=== PATIENT | male | born 1990 | race Caucasian/White ===

== ENCOUNTER 2020-08-16 16:37 | Inpatient (IN) | payer MEDICAID, OTHER ==
[~2020-08-16] VITALS: Ht 165.1 cm; Wt 69.5 kg
[2020-08-16] MEDS ORDERED: ALBU8HFA IH (16:54)
[2020-08-16] MEDS ORDERED: OLAN5TAB2 PO (16:54)
[2020-08-16 18:12] LABS: BASOPHILS % (AUTO) 0.8 % (0.0-2.0); EOSINOPHILS % (AUTO) 7.7 % (1.0-6.0); HEMATOCRIT 45.6 % (41-53); HEMOGLOBIN 15.1 g/dL (13.5-17.5); LYMPHOCYTES # (AUTO) 1.6 K/uL (1.0-4.8); LYMPHOCYTES % (AUTO) 15.3 % (22.0-44.0); MEAN CORPUSCULAR HEMOGLOBIN 28.2 pg (26.0-34.0); MEAN CORPUSCULAR HGB CONC 33.2 G/dL (31.0-37.0); MEAN CORPUSCULAR VOLUME 85 fL (80-100); MONOCYTES # (AUTO) 1.1 K/uL (0.1-1.0); MONOCYTES % (AUTO) 10.1 % (2.0-9.0); NEUTROPHILS % (AUTO) 66.1 % (40.0-70.0); PLATELET COUNT (AUTO) 362 K/uL (150-450); RED BLOOD CELL COUNT(AUTO) 5.36 MIL/uL (4.50-5.90)
[2020-08-16 18:53] LABS: ANION GAP 6 mmol/L (8-16); CALCIUM, TOTAL 8.5 mg/dL (8.8-10.5); CARBON DIOXIDE 34 mmol/L (22-29); CHLORIDE 106 mmol/L (98-107); GLOMERULAR FILTR. RATE CALC > 60 mL/min (>60); GLUCOSE,RANDOM 71 mg/dL (70-110); POTASSIUM 4.1 mmol/L (3.5-5.1); SODIUM SERUM 146 mmol/L (136-145); UREA NITROGEN, BLOOD 11 mg/dL (7-18)
[2020-08-16 19:00] LABS: ALANINE AMINOTRANSFERASE 21 U/L (12-78); ALBUMIN 3.4 g/dL (3.4-5.0); ALKALINE PHOSPHATASE 58 U/L (46-116); ASPARTATE AMINOTRANSFERASE 17 U/L (15-37); BILIRUBIN,TOTAL 0.2 mg/dL (0.1-1.0); TOTAL PROTEIN, SERUM 7.1 g/dL (6.4-8.2)
[2020-08-16] MEDS ORDERED: HALOPERIDOL 5 MG TABLET PO ONE (19:00)
[2020-08-16 19:36] LABS: COVID AG,FIA SOURCE NASOPHARYNGEAL
[2020-08-16 21:18] VITALS: BP 133/75
[2020-08-17] MEDS ORDERED: PETROLATUM,WHITE 28 GM JELLY TP PRN (08:15)
[2020-08-17] MEDS ORDERED: ACETAMINOPHEN 325 MG TABLET PO PRN (08:15)
[2020-08-17] MEDS ORDERED: DOCUSATE SODIUM 100 MG CAPSULE PO PRN (08:15)
[2020-08-17] MEDS ORDERED: ALBUTEROL SULFATE HFA 90 MCG/PUFF 8 GM INHALER IH PRN (08:15)
[2020-08-17] MEDS ORDERED: GuaiFENesin/D-METHORPHAN [SUGAR-FREE] 200-20MG/10 ML SYRUP UDCUP PO PRN (08:15)
[2020-08-17] MEDS ORDERED: LOPERAMIDE HCL 2 MG CAPSULE PO PRN (08:15)
[2020-08-17] MEDS ORDERED: CloNIDine HCL 0.1 MG TABLET PO PRN (08:15)
[2020-08-17] MEDS ORDERED: NICOTINE 14 MG/24 HOUR PATCH TD PRN (08:15)
[2020-08-17] MEDS ORDERED: MAG HYDROX/AL HYDROX/SIMETH ES 30 ML SUSPENSION UDCUP PO PRN (08:15)
[2020-08-17] MEDS ORDERED: MAGNESIUM HYDROXIDE SUSPENSION 30 ML UDCUP PO PRN (08:15)
[2020-08-17] MEDS ORDERED: ONDANSETRON HCL 4 MG TABLET PO PRN (08:15)
[2020-08-17] MEDS: IBUPROFEN 400 MG TABLET PO PRN (11:21)
[2020-08-17 16:19] VITALS: BP 110/62
[2020-08-17] MEDS: OLANZapine 5 MG TABLET PO SCH (20:14)
[2020-08-18] MEDS: OLANZapine 5 MG TABLET PO SCH ×2 (09:00→20:14)
[2020-08-18 17:00] VITALS: BP 115/66
[2020-08-19 08:00] VITALS: BP 112/69
[2020-08-19] MEDS: OLANZapine 5 MG TABLET PO SCH ×2 (09:01→20:16)
[2020-08-19 17:00] VITALS: BP 117/76
[2020-08-20 08:00] VITALS: BP 131/82
[2020-08-20] MEDS: OLANZapine 5 MG TABLET PO SCH (09:52)
[2020-08-20 16:00] VITALS: BP 105/60
[2020-08-20] MEDS: OLANZapine 7.5 MG TABLET PO SCH (20:00)
[2020-08-20] MEDS: ZOLPIDEM TARTRATE 10 MG TABLET PO PRN (21:36)
[2020-08-21 07:43] LABS: ANION GAP 6 mmol/L (8-16); CALCIUM, TOTAL 8.5 mg/dL (8.8-10.5); CARBON DIOXIDE 29 mmol/L (22-29); CHLORIDE 103 mmol/L (98-107); CREATININE 0.89 mg/dL (0.60-1.30); GLOMERULAR FILTR. RATE CALC > 60 mL/min (>60); GLUCOSE,RANDOM 90 mg/dL (70-110); POTASSIUM 4.5 mmol/L (3.5-5.1); SODIUM SERUM 138 mmol/L (136-145); UREA NITROGEN, BLOOD 19 mg/dL (7-18)
[2020-08-21] MEDS: OLANZapine 7.5 MG TABLET PO SCH ×2 (09:08→20:03)
[2020-08-21] MEDS: LORazepam 2 MG TABLET PO PRN (13:05)
[2020-08-21] MEDS: HALOPERIDOL 5 MG TABLET PO PRN (13:05)
[2020-08-21 16:15] VITALS: BP 119/78
[2020-08-21] MEDS: ZOLPIDEM TARTRATE 10 MG TABLET PO PRN (20:03)
[2020-08-22 08:00] VITALS: BP 98/57
[2020-08-22] MEDS: OLANZapine 7.5 MG TABLET PO SCH ×2 (09:15→20:05)
[2020-08-22] MEDS: LORazepam 2 MG TABLET PO PRN ×2 (09:16→23:45)
[2020-08-22] MEDS: HALOPERIDOL 5 MG TABLET PO PRN ×2 (09:16→23:45)
[2020-08-22 14:15] LABS: COVID AG,FIA SOURCE NASOPHARYNGEAL
[2020-08-22 16:17] VITALS: BP 110/77
[2020-08-22] MEDS: ZOLPIDEM TARTRATE 10 MG TABLET PO PRN (20:07)
[2020-08-23 08:00] VITALS: BP 112/66
[2020-08-23] MEDS: OLANZapine 7.5 MG TABLET PO SCH ×2 (08:15→20:42)
[2020-08-23 16:08] VITALS: BP 119/73
[2020-08-23] MEDS: LORazepam 2 MG TABLET PO PRN (16:37)
[2020-08-23] MEDS: HALOPERIDOL 5 MG TABLET PO PRN (16:38)
[2020-08-23] MEDS: ZOLPIDEM TARTRATE 10 MG TABLET PO PRN (20:41)
[2020-08-24] MEDS: LORazepam 2 MG TABLET PO PRN (00:03)
[2020-08-24] MEDS: HALOPERIDOL 5 MG TABLET PO PRN (00:03)
[2020-08-24] MEDS: OLANZapine 7.5 MG TABLET PO SCH ×2 (08:52→20:39)
[2020-08-24 11:48] VITALS: BP 124/72
[2020-08-24 16:28] VITALS: BP 118/64
[2020-08-25] MEDS: ZOLPIDEM TARTRATE 10 MG TABLET PO PRN (00:23)
[2020-08-25] MEDS: LORazepam 2 MG TABLET PO PRN (00:23)
[2020-08-25 09:41] VITALS: BP 122/68
[2020-08-25] MEDS: OLANZapine 7.5 MG TABLET PO SCH (09:41)
[2020-08-25] MEDS: IBUPROFEN 400 MG TABLET PO PRN (09:41)
[2020-08-25] MEDS ORDERED: OLAN7.5T2 PO (11:18)
== END 2020-08-25 12:20 | disposition home or self-care (01) | DRG 750 ==
LOC: EMS 16:37 → 3EC 19:22
DX: F20.0 Paranoid schizophrenia (principal); E87.0 Hyperosmolality and hypernatremia; F12.10 Cannabis abuse, uncomplicated; F15.10 Other stimulant abuse, uncomplicated; J45.909 Unspecified asthma, uncomplicated; F17.210 Nicotine dependence, cigarettes, uncomplicated; R45.850 Homicidal ideations; M54.9 Dorsalgia, unspecified; G89.29 Other chronic pain; F99 Mental disorder, not otherwise specified; Z20.828 Contact with and (suspected) exposure to other viral communicable diseases; I95.9 Hypotension, unspecified; Z59.0 Homelessness; Z79.899 Other long term (current) drug therapy
CPT/HCPCS: 87426; G0480

== ENCOUNTER 2020-09-01 21:02 | Emergency (ER) | payer MEDICAID, OTHER ==
[~2020-09-01] VITALS: Ht 165.1 cm; Wt 63.6 kg
[~2020-09-01 21:02] MED LIST: OLAN7.5T2 PO
[2020-09-02 01:38] VITALS: BP 118/73
== END 2020-09-02 01:46 | disposition home or self-care (01) ==
LOC: EMS 21:02
DX: R44.0 Auditory hallucinations (principal); J45.909 Unspecified asthma, uncomplicated; F17.210 Nicotine dependence, cigarettes, uncomplicated; F12.90 Cannabis use, unspecified, uncomplicated; F19.90 Other psychoactive substance use, unspecified, uncomplicated; G89.29 Other chronic pain; Z76.0 Encounter for issue of repeat prescription
CPT/HCPCS: Z7502

== ENCOUNTER 2020-09-15 11:00 | Emergency (ER) | payer OTHER ==
[~2020-09-15] VITALS: Ht 165.1 cm; Wt 67.3 kg
[2020-09-15 12:32] LABS: AMPHET/METH SCREEN,URINE POSITIVE (NEGATIVE); BARBITURATE SCREEN, URINE NEGATIVE (NEGATIVE); BENZODIAZEPINES SCREEN,URINE NEGATIVE (NEGATIVE); CANNABINOID SCREEN,URINE NEGATIVE (NEGATIVE); COCAINE SCREEN,URINE NEGATIVE (NEGATIVE); METHADONE SCREEN, URINE NEGATIVE (NEGATIVE); OPIATE SCREEN,URINE NEGATIVE (NEGATIVE)
[2020-09-15 12:34] LABS: PHENCYCLIDINE SCREEN,URINE NEGATIVE (NEGATIVE)
[2020-09-15 13:14] LABS: BASOPHILS % (AUTO) 0.8 % (0.0-2.0); EOSINOPHILS % (AUTO) 10.1 % (1.0-6.0); HEMATOCRIT 44.2 % (41-53); HEMOGLOBIN 14.5 g/dL (13.5-17.5); LYMPHOCYTES # (AUTO) 1.2 K/uL (1.0-4.8); LYMPHOCYTES % (AUTO) 17.3 % (22.0-44.0); MEAN CORPUSCULAR HEMOGLOBIN 28.1 pg (26.0-34.0); MEAN CORPUSCULAR HGB CONC 32.7 G/dL (31.0-37.0); MEAN CORPUSCULAR VOLUME 86 fL (80-100); MONOCYTES # (AUTO) 0.7 K/uL (0.1-1.0); MONOCYTES % (AUTO) 9.4 % (2.0-9.0); NEUTROPHILS # (AUTO) 4.5 K/uL (1.8-7.7); NEUTROPHILS % (AUTO) 62.4 % (40.0-70.0); PLATELET COUNT (AUTO) 343 K/uL (150-450); RED BLOOD CELL COUNT(AUTO) 5.16 MIL/uL (4.50-5.90); RED CELL DISTRIBUTION WIDTH 14.2 % (11.5-14.5)
[2020-09-15 13:31] LABS: ANION GAP 3 mmol/L (8-16); CALCIUM, TOTAL 8.4 mg/dL (8.8-10.5); CARBON DIOXIDE 30 mmol/L (22-29); CHLORIDE 105 mmol/L (98-107); CREATININE 0.79 mg/dL (0.60-1.30); GLOMERULAR FILTR. RATE CALC > 60 mL/min (>60); GLUCOSE,RANDOM 95 mg/dL (70-110); POTASSIUM 4.5 mmol/L (3.5-5.1); SODIUM SERUM 138 mmol/L (136-145); UREA NITROGEN, BLOOD 10 mg/dL (7-18)
[2020-09-15 13:44] LABS: ALANINE AMINOTRANSFERASE 21 U/L (12-78); ALBUMIN 3.2 g/dL (3.4-5.0); ALKALINE PHOSPHATASE 54 U/L (46-116); ASPARTATE AMINOTRANSFERASE 19 U/L (15-37); BILIRUBIN,TOTAL 0.3 mg/dL (0.1-1.0); TOTAL PROTEIN, SERUM 6.9 g/dL (6.4-8.2)
[2020-09-15 16:03] VITALS: BP 135/76
[2020-09-15] MEDS ORDERED: OLANZapine 5 MG TABLET PO ONE (16:30)
== END 2020-09-15 17:54 | disposition home or self-care (01) ==
LOC: EMS 11:19
DX: R45.851 Suicidal ideations (principal); F20.9 Schizophrenia, unspecified; J45.909 Unspecified asthma, uncomplicated; F12.10 Cannabis abuse, uncomplicated; F19.90 Other psychoactive substance use, unspecified, uncomplicated
CPT/HCPCS: 36415; 80053; 80307; 85025; 99284; G0480

== ENCOUNTER 2021-03-31 11:35 | Inpatient (IN) | payer MEDICAID ==
[~2021-03-31] VITALS: Ht 165.1 cm; Wt 65.9 kg
[~2021-03-31 11:35] MED LIST changes: -OLAN7.5T2 PO; +OLAN7.5T22 PO
[2021-03-31] MEDS ORDERED: HALOPERIDOL 5 MG TABLET PO PRN (12:15)
[2021-03-31 13:03] LABS: GLUCOMETER DEV NAME(LOC) POC.BV
[2021-03-31] MEDS: LORazepam 2 MG TABLET PO PRN (14:09)
[2021-03-31] MEDS ORDERED: LOPERAMIDE HCL 2 MG CAPSULE PO PRN (15:45)
[2021-03-31] MEDS ORDERED: DOCUSATE SODIUM 100 MG CAPSULE PO PRN (15:45)
[2021-03-31] MEDS ORDERED: GuaiFENesin/D-METHORPHAN [SUGAR-FREE] 200-20MG/10 ML SYRUP UDCUP PO PRN (15:45)
[2021-03-31] MEDS ORDERED: MAG HYDROX/AL HYDROX/SIMETH ES 30 ML SUSPENSION UDCUP PO PRN (15:45)
[2021-03-31] MEDS ORDERED: MAGNESIUM HYDROXIDE SUSPENSION 30 ML UDCUP PO PRN (15:45)
[2021-03-31] MEDS ORDERED: ONDANSETRON HCL 4 MG TABLET PO PRN (15:45)
[2021-03-31] MEDS ORDERED: IBUPROFEN 400 MG TABLET PO PRN (15:45)
[2021-03-31] MEDS ORDERED: ALBUTEROL SULFATE HFA 90 MCG/PUFF 8 GM INHALER IH PRN (15:45)
[2021-03-31] MEDS ORDERED: NICOTINE 14 MG/24 HOUR PATCH TD PRN (15:45)
[2021-03-31] MEDS ORDERED: CloNIDine HCL 0.1 MG TABLET PO PRN (15:45)
[2021-03-31] MEDS ORDERED: PETROLATUM,WHITE 28 GM JELLY TP PRN (15:45)
[2021-03-31] MEDS ORDERED: ACETAMINOPHEN 325 MG TABLET PO PRN (15:45)
[2021-03-31 17:45] VITALS: BP 113/67
[2021-04-01 02:26] VITALS: BP 128/80
[2021-04-01 02:32] VITALS: BP 128/80
[2021-04-01] MEDS ORDERED: DOCUSATE SODIUM 100 MG CAPSULE PO PRN (08:00)
[2021-04-01] MEDS ORDERED: MAGNESIUM HYDROXIDE SUSPENSION 30 ML UDCUP PO PRN (08:00)
[2021-04-01] MEDS ORDERED: ONDANSETRON HCL 4 MG TABLET PO PRN (08:00)
[2021-04-01] MEDS ORDERED: NICOTINE 14 MG/24 HOUR PATCH TD PRN (08:00)
[2021-04-01] MEDS ORDERED: CloNIDine HCL 0.1 MG TABLET PO PRN (08:00)
[2021-04-01] MEDS ORDERED: GuaiFENesin/D-METHORPHAN [SUGAR-FREE] 200-20MG/10 ML SYRUP UDCUP PO PRN (08:00)
[2021-04-01] MEDS ORDERED: ACETAMINOPHEN 325 MG TABLET PO PRN (08:00)
[2021-04-01] MEDS ORDERED: MAG HYDROX/AL HYDROX/SIMETH ES 30 ML SUSPENSION UDCUP PO PRN (08:00)
[2021-04-01] MEDS ORDERED: PETROLATUM,WHITE 28 GM JELLY TP PRN (08:00)
[2021-04-01] MEDS ORDERED: LOPERAMIDE HCL 2 MG CAPSULE PO PRN (08:00)
[2021-04-01] MEDS ORDERED: ALBUTEROL SULFATE HFA 90 MCG/PUFF 8 GM INHALER IH PRN (08:00)
[2021-04-01 08:09] LABS: BASOPHILS % (AUTO) 0.4 % (0.0-2.0); HEMATOCRIT 43.9 % (41-53); HEMOGLOBIN 14.6 g/dL (13.5-17.5); LYMPHOCYTES # (AUTO) 1.2 K/uL (1.0-4.8); LYMPHOCYTES % (AUTO) 22.9 % (22.0-44.0); MEAN CORPUSCULAR HEMOGLOBIN 27.2 pg (26.0-34.0); MEAN CORPUSCULAR HGB CONC 33.3 G/dL (31.0-37.0); MEAN CORPUSCULAR VOLUME 82 fL (80-100); MONOCYTES % (AUTO) 18.1 % (2.0-9.0); NEUTROPHILS # (AUTO) 2.3 K/uL (1.8-7.7); NEUTROPHILS % (AUTO) 44.6 % (40.0-70.0); PLATELET COUNT (AUTO) 262 K/uL (150-450); RED BLOOD CELL COUNT(AUTO) 5.38 MIL/uL (4.50-5.90); RED CELL DISTRIBUTION WIDTH 13.6 % (11.5-14.5)
[2021-04-01 08:21] LABS: HEMOGLOBIN A1C 5.4 % (3.8-5.6)
[2021-04-01 08:42] LABS: ALANINE AMINOTRANSFERASE 28 U/L (12-78); ALKALINE PHOSPHATASE 68 U/L (46-116); ANION GAP 10 mmol/L (8-16); ASPARTATE AMINOTRANSFERASE 19 U/L (15-37); BILIRUBIN,TOTAL 0.2 mg/dL (0.1-1.0); CALCIUM, TOTAL 8.3 mg/dL (8.8-10.5); CARBON DIOXIDE 29 mmol/L (22-29); CHLORIDE 99 mmol/L (98-107); CHOL/HDL RATIO 3.3 (4.2-7.3); CHOLESTEROL 147 mg/dL (131-200); CREATININE 0.64 mg/dL (0.60-1.30); FREE T4 (FREE THYROXINE) 0.92 ng/dL (0.76-1.46); GLOMERULAR FILTR. RATE CALC > 60 mL/min (>60); GLUCOSE,RANDOM 82 mg/dL (70-110); HDL CHOLESTEROL 45 mg/dL (40-60); LDL CHOL (CALC.) 80 mg/dL (0-130); POTASSIUM 4.4 mmol/L (3.5-5.1); SODIUM SERUM 138 mmol/L (136-145); THYROID STIMULATING HORMONE 1.36 uIU/mL (0.36-3.74); TOTAL PROTEIN, SERUM 8.4 g/dL (6.4-8.2); TRIGLYCERIDES 108 mg/dL (15-150); UREA NITROGEN, BLOOD 14 mg/dL (7-18)
[2021-04-01] MEDS: LORazepam 2 MG TABLET PO PRN ×2 (09:21→17:07)
[2021-04-01 16:31] VITALS: BP 124/78
[2021-04-01] MEDS: OLANZapine 5 MG TABLET PO SCH (17:07)
[2021-04-01] MEDS: IBUPROFEN 400 MG TABLET PO PRN (18:57)
[2021-04-01] MEDS: ZOLPIDEM TARTRATE 10 MG TABLET PO PRN (21:44)
[2021-04-02 02:54] VITALS: BP 122/81
[2021-04-02 07:57] LABS: APPEARANCE,URINE CLEAR (CLEAR); BILIRUBIN,URINE NEGATIVE (NEGATIVE); GLUCOSE, URINE (UA) NEGATIVE (NEGATIVE); KETONES,URINE NEGATIVE (NEGATIVE); LEUKOCYTE ESTERASE ,URINE NEGATIVE (NEGATIVE); NITRATE,URINE NEGATIVE (NEGATIVE); OCCULT BLOOD,URINE NEGATIVE (NEGATIVE); PROTEIN,URINE NEGATIVE (NEGATIVE); UROBILINOGEN,URINE 0.2 mg/dL (<=1.0)
[2021-04-02 08:03] LABS: AMPHET/METH SCREEN,URINE NEGATIVE (NEGATIVE); BARBITURATE SCREEN, URINE NEGATIVE (NEGATIVE); BENZODIAZEPINES SCREEN,URINE NEGATIVE (NEGATIVE); CANNABINOID SCREEN,URINE NEGATIVE (NEGATIVE); COCAINE SCREEN,URINE NEGATIVE (NEGATIVE); METHADONE SCREEN, URINE NEGATIVE (NEGATIVE); OPIATE SCREEN,URINE NEGATIVE (NEGATIVE); PHENCYCLIDINE SCREEN,URINE NEGATIVE (NEGATIVE)
[2021-04-02 08:51] VITALS: BP 108/73
[2021-04-02] MEDS: OLANZapine 5 MG TABLET PO SCH ×2 (09:29→16:51)
[2021-04-02 16:26] VITALS: BP 109/65
[2021-04-02] MEDS: LORazepam 2 MG TABLET PO PRN (16:51)
[2021-04-02] MEDS: IBUPROFEN 400 MG TABLET PO PRN (21:10)
[2021-04-02] MEDS: ZOLPIDEM TARTRATE 10 MG TABLET PO PRN (21:10)
[2021-04-03 01:12] VITALS: BP 129/82
[2021-04-03 08:45] VITALS: BP 111/67
[2021-04-03] MEDS: OLANZapine 5 MG TABLET PO SCH ×2 (08:52→16:38)
[2021-04-03] MEDS: LORazepam 2 MG TABLET PO PRN ×3 (08:52→20:31)
[2021-04-03] MEDS: IBUPROFEN 400 MG TABLET PO PRN (14:45)
[2021-04-03 16:28] VITALS: BP 101/70
[2021-04-03 20:30] VITALS: BP 118/78
[2021-04-03] MEDS: ZOLPIDEM TARTRATE 10 MG TABLET PO PRN (20:31)
[2021-04-04 00:23] VITALS: BP 130/86
[2021-04-04] MEDS: OLANZapine 5 MG TABLET PO SCH ×2 (08:14→16:04)
[2021-04-04 08:24] VITALS: BP 104/60
[2021-04-04] MEDS: LORazepam 2 MG TABLET PO PRN ×2 (14:33→20:50)
[2021-04-04 16:54] VITALS: BP 100/62
[2021-04-04 20:50] VITALS: BP 111/75
[2021-04-05 02:35] VITALS: BP 121/77
[2021-04-05] MEDS: OLANZapine 5 MG TABLET PO SCH ×2 (10:10→16:53)
[2021-04-05 14:18] VITALS: BP 100/64
[2021-04-05 14:24] VITALS: BP 109/71
[2021-04-05] MEDS: LORazepam 2 MG TABLET PO PRN (16:53)
[2021-04-05] MEDS: IBUPROFEN 400 MG TABLET PO PRN (16:53)
[2021-04-05 17:36] VITALS: BP 101/61
[2021-04-05] MEDS: ZOLPIDEM TARTRATE 10 MG TABLET PO PRN (20:11)
[2021-04-06] MEDS: IBUPROFEN 400 MG TABLET PO PRN ×2 (00:18→13:07)
[2021-04-06 00:19] VITALS: BP 123/78
[2021-04-06] MEDS: LORazepam 2 MG TABLET PO PRN ×2 (00:53→09:06)
[2021-04-06 01:43] VITALS: BP 112/71
[2021-04-06 08:12] VITALS: BP 132/84
[2021-04-06] MEDS: OLANZapine 5 MG TABLET PO SCH (09:05)
[2021-04-06] MEDS ORDERED: OLAN5TAB52 PO (12:36)
== END 2021-04-06 16:49 | disposition home or self-care (01) | DRG 750 ==
LOC: B3A 13:08
PROVIDERS: ADMIT Psychiatry & Neurology Psychiatry; ATTEND Psychiatry & Neurology Psychiatry
DX: F20.0 Paranoid schizophrenia (principal); I95.9 Hypotension, unspecified; J45.909 Unspecified asthma, uncomplicated; F12.10 Cannabis abuse, uncomplicated; F10.10 Alcohol abuse, uncomplicated; Z20.822 Contact with and (suspected) exposure to COVID-19
CPT/HCPCS: 80053; 80061; 80307; 81003; 83036; 84436; 84439; 84443; 85025

== ENCOUNTER 2021-07-28 16:14 | Inpatient (IN) | payer MEDICAID ==
[~2021-07-28] VITALS: Ht 165.1 cm; Wt 58.1 kg
[~2021-07-28 16:14] MED LIST changes: +OLAN5TAB52 PO; -OLAN7.5T22 PO
[2021-07-28] MEDS ORDERED: INFLUENZA VIRUS VACCINE QVS 2021-22 (6MO+)/PF 60 MCG/0.5 ML SYRINGE IM. ONE (16:45)
[2021-07-28 17:37] LABS: GLUCOMETER DEV NAME(LOC) POC.BV
[2021-07-28 17:45] VITALS: BP 111/78
[2021-07-28] MEDS ORDERED: PNEUMOCOCCAL VACCINE POLYVALENT 0.5 ML VIAL [PPSV23] IM. ONE (18:00)
[2021-07-28] MEDS ORDERED: PERMETHRIN 5% 60 GM CREAM TP ONE (18:45)
[2021-07-28] MEDS: OLANZapine 5 MG TABLET PO SCH (20:46)
[2021-07-29 04:30] VITALS: BP 128/65
[2021-07-29 06:52] LABS: BASOPHILS % (AUTO) 0.7 % (0.0-2.0); EOSINOPHILS % (AUTO) 13.8 % (1.0-6.0); HEMATOCRIT 39.6 % (41-53); HEMOGLOBIN 13.1 g/dL (13.5-17.5); LYMPHOCYTES # (AUTO) 0.9 K/uL (1.0-4.8); LYMPHOCYTES % (AUTO) 17.1 % (22.0-44.0); MEAN CORPUSCULAR HEMOGLOBIN 27.1 pg (26.0-34.0); MEAN CORPUSCULAR VOLUME 82 fL (80-100); MONOCYTES # (AUTO) 0.8 K/uL (0.1-1.0); MONOCYTES % (AUTO) 15.6 % (2.0-9.0); NEUTROPHILS # (AUTO) 2.8 K/uL (1.8-7.7); NEUTROPHILS % (AUTO) 52.8 % (40.0-70.0); PLATELET COUNT (AUTO) 227 K/uL (150-450); RED BLOOD CELL COUNT(AUTO) 4.83 MIL/uL (4.50-5.90); RED CELL DISTRIBUTION WIDTH 13.6 % (11.5-14.5)
[2021-07-29 06:58] LABS: APPEARANCE,URINE TURBID (CLEAR); BILIRUBIN,URINE NEGATIVE (NEGATIVE); GLUCOSE, URINE (UA) NEGATIVE (NEGATIVE); KETONES,URINE NEGATIVE (NEGATIVE); LEUKOCYTE ESTERASE ,URINE NEGATIVE (NEGATIVE); NITRATE,URINE NEGATIVE (NEGATIVE); OCCULT BLOOD,URINE NEGATIVE (NEGATIVE); PH,URINE 5.5 (5.0-8.0); PROTEIN,URINE NEGATIVE (NEGATIVE); UROBILINOGEN,URINE 0.2 mg/dL (<=1.0)
[2021-07-29 07:02] LABS: AMPHET/METH SCREEN,URINE POSITIVE (NEGATIVE); BARBITURATE SCREEN, URINE NEGATIVE (NEGATIVE); BENZODIAZEPINES SCREEN,URINE NEGATIVE (NEGATIVE); CANNABINOID SCREEN,URINE NEGATIVE (NEGATIVE); COCAINE SCREEN,URINE NEGATIVE (NEGATIVE); METHADONE SCREEN, URINE NEGATIVE (NEGATIVE); OPIATE SCREEN,URINE NEGATIVE (NEGATIVE)
[2021-07-29 07:03] LABS: PHENCYCLIDINE SCREEN,URINE NEGATIVE (NEGATIVE)
[2021-07-29 07:15] LABS: ALANINE AMINOTRANSFERASE 23 U/L (12-78); ALBUMIN 2.8 g/dL (3.4-5.0); ALKALINE PHOSPHATASE 59 U/L (46-116); ANION GAP 3 mmol/L (8-16); ASPARTATE AMINOTRANSFERASE 20 U/L (15-37); BILIRUBIN,TOTAL 0.1 mg/dL (0.1-1.0); CALCIUM, TOTAL 8.3 mg/dL (8.8-10.5); CARBON DIOXIDE 30 mmol/L (22-29); CHLORIDE 106 mmol/L (98-107); CHOL/HDL RATIO 3.1 (4.2-7.3); CHOLESTEROL 137 mg/dL (131-200); CREATININE 0.78 mg/dL (0.60-1.30); FREE T4 (FREE THYROXINE) 0.88 ng/dL (0.76-1.46); GLOMERULAR FILTR. RATE CALC > 60 mL/min (>60); GLUCOSE,RANDOM 96 mg/dL (70-110); HDL CHOLESTEROL 44 mg/dL (40-60); LDL CHOL (CALC.) 62 mg/dL (0-130); POTASSIUM 3.9 mmol/L (3.5-5.1); SODIUM SERUM 139 mmol/L (136-145); THYROID STIMULATING HORMONE 1.76 uIU/mL (0.36-3.74); TOTAL PROTEIN, SERUM 8.4 g/dL (6.4-8.2); TRIGLYCERIDES 154 mg/dL (15-150); UREA NITROGEN, BLOOD 20 mg/dL (7-18)
[2021-07-29 07:25] LABS: HEMOGLOBIN A1C 5.4 % (3.8-5.6)
[2021-07-29] MEDS: OLANZapine 5 MG TABLET PO SCH ×2 (09:34→17:30)
[2021-07-29 09:45] VITALS: BP 108/69
[2021-07-29] MEDS ORDERED: ONDANSETRON HCL 4 MG TABLET PO PRN (14:45)
[2021-07-29] MEDS ORDERED: MAGNESIUM HYDROXIDE SUSPENSION 30 ML UDCUP PO PRN (14:45)
[2021-07-29] MEDS ORDERED: GuaiFENesin/D-METHORPHAN [SUGAR-FREE] 200-20MG/10 ML SYRUP UDCUP PO PRN (14:45)
[2021-07-29] MEDS ORDERED: MAG HYDROX/AL HYDROX/SIMETH ES 30 ML SUSPENSION UDCUP PO PRN (14:45)
[2021-07-29] MEDS ORDERED: LOPERAMIDE HCL 2 MG CAPSULE PO PRN (14:45)
[2021-07-29] MEDS ORDERED: DOCUSATE SODIUM 100 MG CAPSULE PO PRN (14:45)
[2021-07-29] MEDS ORDERED: NICOTINE 14 MG/24 HOUR PATCH TD PRN (14:45)
[2021-07-29] MEDS ORDERED: ALBUTEROL SULFATE HFA 90 MCG/PUFF 8 GM INHALER IH PRN (14:45)
[2021-07-29] MEDS ORDERED: PETROLATUM,WHITE 28 GM JELLY TP PRN (14:45)
[2021-07-29] MEDS ORDERED: CloNIDine HCL 0.1 MG TABLET PO PRN (14:45)
[2021-07-29 16:11] VITALS: BP 115/63
[2021-07-29] MEDS: ACETAMINOPHEN 325 MG TABLET PO PRN (22:17)
[2021-07-30 02:49] VITALS: BP 129/79
[2021-07-30] MEDS: LORazepam 2 MG TABLET PO PRN (02:53)
[2021-07-30 08:24] VITALS: BP 112/60
[2021-07-30] MEDS: OLANZapine 5 MG TABLET PO SCH ×2 (09:33→16:23)
[2021-07-30] MEDS: IBUPROFEN 400 MG TABLET PO PRN ×2 (12:40→22:15)
[2021-07-30] MEDS ORDERED: PERMETHRIN 5% 60 GM CREAM TP ONE (13:00)
[2021-07-30 16:11] VITALS: BP 104/65
[2021-07-31 01:06] VITALS: BP 120/69
[2021-07-31] MEDS: IBUPROFEN 400 MG TABLET PO PRN ×2 (06:15→14:18)
[2021-07-31 08:08] VITALS: BP 112/69
[2021-07-31] MEDS: OLANZapine 5 MG TABLET PO SCH ×2 (08:24→16:35)
[2021-07-31] MEDS: ACETAMINOPHEN 325 MG TABLET PO PRN (10:24)
[2021-07-31] MEDS ORDERED: PNEUMOCOCCAL VACCINE POLYVALENT 0.5 ML VIAL [PPSV23] IM. ONE (11:00)
[2021-07-31] MEDS ORDERED: INFLUENZA VIRUS VACCINE QVS 2021-22 (6MO+)/PF 60 MCG/0.5 ML SYRINGE IM. ONE (11:00)
[2021-07-31 19:59] VITALS: BP 117/81
[2021-07-31] MEDS: TraMADol HCL 50 MG TABLET PO PRN (19:59)
[2021-08-01] MEDS: TraMADol HCL 50 MG TABLET PO PRN (05:06)
[2021-08-01] MEDS: OLANZapine 5 MG TABLET PO SCH ×2 (08:42→16:19)
[2021-08-01] MEDS: IBUPROFEN 400 MG TABLET PO PRN (13:56)
[2021-08-01] MEDS: LORazepam 2 MG TABLET PO PRN (16:19)
[2021-08-01 16:28] VITALS: BP 110/60
[2021-08-02 00:54] VITALS: BP 113/70
[2021-08-02] MEDS: IBUPROFEN 400 MG TABLET PO PRN ×2 (03:19→12:38)
[2021-08-02 03:22] VITALS: BP 111/71
[2021-08-02 07:23] LABS: COVID AG,FIA SOURCE NASOPHARYNGEAL
[2021-08-02] MEDS: OLANZapine 5 MG TABLET PO SCH ×2 (08:04→16:38)
[2021-08-02] MEDS: ACETAMINOPHEN 325 MG TABLET PO PRN (08:04)
[2021-08-02 08:28] VITALS: BP 118/63
[2021-08-02 16:20] VITALS: BP 131/78
[2021-08-02] MEDS: LORazepam 2 MG TABLET PO PRN (16:48)
[2021-08-02 20:54] VITALS: BP 121/78
[2021-08-02] MEDS: TraMADol HCL 50 MG TABLET PO PRN (20:54)
[2021-08-02] MEDS: ZOLPIDEM TARTRATE 10 MG TABLET PO PRN (21:09)
[2021-08-03 00:55] VITALS: BP 128/79
[2021-08-03 09:34] VITALS: BP 134/67
[2021-08-03] MEDS: OLANZapine 5 MG TABLET PO SCH ×2 (09:34→18:15)
[2021-08-03] MEDS: IBUPROFEN 400 MG TABLET PO PRN ×2 (09:35→22:13)
[2021-08-03] MEDS: LORazepam 2 MG TABLET PO PRN (13:23)
[2021-08-03] MEDS: HALOPERIDOL 5 MG TABLET PO PRN (15:56)
[2021-08-03 16:16] VITALS: BP 116/73
[2021-08-03 22:13] VITALS: BP 123/79
[2021-08-04 05:38] VITALS: BP_SYST 105; BP_SYST 126; BP_DIAS 60; BP_DIAS 63
[2021-08-04] MEDS: TraMADol HCL 50 MG TABLET PO PRN (05:45)
[2021-08-04 08:10] VITALS: BP 103/61
[2021-08-04] MEDS: THIAMINE 100 MG TABLET PO SCH (08:51)
[2021-08-04] MEDS: OMEGA-3/DHA/EPA/FISH OIL 1,000 MG CAPSULE PO SCH (08:51)
[2021-08-04] MEDS: OLANZapine 5 MG TABLET PO SCH ×2 (08:51→16:28)
[2021-08-04] MEDS: LORazepam 2 MG TABLET PO PRN (08:51)
[2021-08-04] MEDS: HALOPERIDOL 5 MG TABLET PO PRN ×2 (08:51→18:32)
[2021-08-04] MEDS: MULTIVITAMINS WITH MINERALS, THERAPEUTIC TABLET PO SCH (08:51)
[2021-08-04 16:10] VITALS: BP 108/62
[2021-08-05 01:59] VITALS: BP 115/67
[2021-08-05 06:23] VITALS: BP 115/68
[2021-08-05] MEDS: LORazepam 2 MG TABLET PO PRN ×2 (06:28→13:09)
[2021-08-05 08:33] VITALS: BP 119/69
[2021-08-05] MEDS: OLANZapine 10 MG TABLET PO SCH (09:00)
[2021-08-05] MEDS: MULTIVITAMINS WITH MINERALS, THERAPEUTIC TABLET PO SCH ×2 (09:00→10:13)
[2021-08-05] MEDS: THIAMINE 100 MG TABLET PO SCH ×2 (09:00→10:13)
[2021-08-05] MEDS: OMEGA-3/DHA/EPA/FISH OIL 1,000 MG CAPSULE PO SCH ×2 (09:00→10:13)
[2021-08-05] MEDS: OLANZapine 5 MG TABLET PO SCH (10:13)
[2021-08-05] MEDS: HALOPERIDOL 5 MG TABLET PO PRN (13:09)
[2021-08-05 16:18] VITALS: BP 119/72
[2021-08-05] MEDS: IBUPROFEN 400 MG TABLET PO PRN (16:25)
[2021-08-05] MEDS: ZOLPIDEM TARTRATE 10 MG TABLET PO PRN (20:50)
[2021-08-06 02:35] VITALS: BP 112/69
[2021-08-06 06:15] VITALS: BP 120/70
[2021-08-06] MEDS: TraMADol HCL 50 MG TABLET PO PRN (06:19)
[2021-08-06 08:34] VITALS: BP 122/80
[2021-08-06] MEDS: MULTIVITAMINS WITH MINERALS, THERAPEUTIC TABLET PO SCH (08:37)
[2021-08-06] MEDS: THIAMINE 100 MG TABLET PO SCH (08:37)
[2021-08-06] MEDS: OMEGA-3/DHA/EPA/FISH OIL 1,000 MG CAPSULE PO SCH (08:37)
[2021-08-06] MEDS: OLANZapine 10 MG TABLET PO SCH ×2 (08:37→17:28)
[2021-08-06] MEDS: LORazepam 2 MG TABLET PO PRN ×2 (08:38→18:57)
[2021-08-06 16:15] VITALS: BP 99/61
[2021-08-06] MEDS: HALOPERIDOL 5 MG TABLET PO PRN (18:56)
[2021-08-07 00:28] VITALS: BP 101/65
[2021-08-07] MEDS: THIAMINE 100 MG TABLET PO SCH (08:29)
[2021-08-07] MEDS: OMEGA-3/DHA/EPA/FISH OIL 1,000 MG CAPSULE PO SCH (08:29)
[2021-08-07] MEDS: MULTIVITAMINS WITH MINERALS, THERAPEUTIC TABLET PO SCH (08:29)
[2021-08-07] MEDS: OLANZapine 10 MG TABLET PO SCH (08:29)
[2021-08-07 08:41] VITALS: BP 100/65
[2021-08-07] MEDS ORDERED: OLAN10TA74 PO (12:31)
== END 2021-08-07 12:50 | disposition home or self-care (01) | DRG 750 ==
LOC: B2S 17:21
PROVIDERS: ADMIT Psychiatry & Neurology Child & Adolescent Psychiatry; ATTEND Psychiatry & Neurology Child & Adolescent Psychiatry
PROC: 3E0234Z Introduction of Serum, Toxoid and Vaccine into Muscle, Percutaneous Approach (ICD-10-PCS; principal; 2021-07-31)
PROC: 3E02340 Introduction of Influenza Vaccine into Muscle, Percutaneous Approach (ICD-10-PCS; 2021-07-31)
DX: F20.0 Paranoid schizophrenia (principal); I95.9 Hypotension, unspecified; F10.10 Alcohol abuse, uncomplicated; F41.9 Anxiety disorder, unspecified; R45.1 Restlessness and agitation; J45.909 Unspecified asthma, uncomplicated; Z20.822 Contact with and (suspected) exposure to COVID-19; D64.9 Anemia, unspecified; F19.10 Other psychoactive substance abuse, uncomplicated; Z71.89 Other specified counseling; Z59.00 Homelessness unspecified; Z23 Encounter for immunization
CPT/HCPCS: 80053; 80061; 80307; 81003; 83036; 84439; 84443; 85025; 86592; 90686; 90732

== ENCOUNTER 2021-08-09 03:04 | Emergency (ER) | payer MEDICAID, OTHER ==
[~2021-08-09] VITALS: Ht 165.1 cm; Wt 58.0 kg
[~2021-08-09 03:04] MED LIST changes: +OLAN10TA74 PO; -OLAN5TAB52 PO
[2021-08-09 03:27] VITALS: BP 127/80
[2021-08-09] MEDS ORDERED: LORazepam 1 MG TABLET PO ONE (03:45)
[2021-08-09] MEDS ORDERED: HALOPERIDOL 5 MG TABLET PO ONE (03:45)
[2021-08-09] MEDS ORDERED: DiphenhydrAMINE HCL 25 MG CAPSULE PO ONE (03:45)
== END 2021-08-09 04:26 | disposition home or self-care (01) ==
LOC: EMS 03:06
DX: F25.9 Schizoaffective disorder, unspecified (principal); F17.210 Nicotine dependence, cigarettes, uncomplicated; F12.90 Cannabis use, unspecified, uncomplicated; F15.90 Other stimulant use, unspecified, uncomplicated
CPT/HCPCS: 99284; Z7502; Z7610

== ENCOUNTER 2021-10-03 11:12 | Inpatient (IN) | payer MEDICAID, OTHER ==
[~2021-10-03] VITALS: Ht 165.1 cm; Wt 56.7 kg
[2021-10-03 12:24] LABS: BASOPHILS % (AUTO) 0.3 % (0.0-2.0); EOSINOPHILS % (AUTO) 11.5 % (1.0-6.0); HEMATOCRIT 38.3 % (41-53); LYMPHOCYTES # (AUTO) 0.6 K/uL (1.0-4.8); LYMPHOCYTES % (AUTO) 11.2 % (22.0-44.0); MEAN CORPUSCULAR HEMOGLOBIN 26.7 pg (26.0-34.0); MEAN CORPUSCULAR HGB CONC 33.8 G/dL (31.0-37.0); MEAN CORPUSCULAR VOLUME 79 fL (80-100); MONOCYTES # (AUTO) 0.6 K/uL (0.1-1.0); MONOCYTES % (AUTO) 12.4 % (2.0-9.0); NEUTROPHILS # (AUTO) 3.3 K/uL (1.8-7.7); NEUTROPHILS % (AUTO) 64.6 % (40.0-70.0); PLATELET COUNT (AUTO) 219 K/uL (150-450); RED BLOOD CELL COUNT(AUTO) 4.86 MIL/uL (4.50-5.90); RED CELL DISTRIBUTION WIDTH 13.6 % (11.5-14.5)
[2021-10-03 12:46] LABS: ANION GAP 5 mmol/L (8-16); CARBON DIOXIDE 31 mmol/L (22-29); CHLORIDE 103 mmol/L (98-107); CREATININE 0.74 mg/dL (0.60-1.30); GLOMERULAR FILTR. RATE CALC > 60 mL/min (>60); GLUCOSE,RANDOM 77 mg/dL (70-110); SODIUM SERUM 139 mmol/L (136-145); UREA NITROGEN, BLOOD 11 mg/dL (7-18)
[2021-10-03 12:52] LABS: ALANINE AMINOTRANSFERASE 21 U/L (12-78); ALBUMIN 2.7 g/dL (3.4-5.0); ALKALINE PHOSPHATASE 61 U/L (46-116); ASPARTATE AMINOTRANSFERASE 27 U/L (15-37); BILIRUBIN,TOTAL 0.1 mg/dL (0.1-1.0)
[2021-10-03] MEDS ORDERED: LORazepam 2 MG TABLET PO ONE (15:15)
[2021-10-04 03:59] LABS: COVID AG,FIA SOURCE NASAL SWAB
[2021-10-04] MEDS ORDERED: ACETAMINOPHEN 325 MG TABLET PO PRN (06:45)
[2021-10-04] MEDS ORDERED: PETROLATUM,WHITE 28 GM JELLY TP PRN (06:45)
[2021-10-04] MEDS ORDERED: NICOTINE 14 MG/24 HOUR PATCH TD PRN (06:45)
[2021-10-04] MEDS ORDERED: CloNIDine HCL 0.1 MG TABLET PO PRN (06:45)
[2021-10-04] MEDS ORDERED: ONDANSETRON HCL 4 MG TABLET PO PRN (06:45)
[2021-10-04] MEDS ORDERED: ALBUTEROL SULFATE HFA 90 MCG/PUFF 8 GM INHALER IH PRN (06:45)
[2021-10-04] MEDS ORDERED: LOPERAMIDE HCL 2 MG CAPSULE PO PRN (06:45)
[2021-10-04] MEDS ORDERED: MAGNESIUM HYDROXIDE SUSPENSION 30 ML UDCUP PO PRN (06:45)
[2021-10-04] MEDS ORDERED: GuaiFENesin/D-METHORPHAN [SUGAR-FREE] 200-20MG/10 ML SYRUP UDCUP PO PRN (06:45)
[2021-10-04] MEDS ORDERED: DOCUSATE SODIUM 100 MG CAPSULE PO PRN (06:45)
[2021-10-04 09:27] VITALS: BP 112/73
[2021-10-04] MEDS: OLANZapine 10 MG TABLET PO SCH ×2 (10:24→16:31)
[2021-10-04 17:11] VITALS: BP 121/68
[2021-10-05] MEDS ORDERED: -PHARMACY VACCINE NOTE- MISC ONE (04:45)
[2021-10-05 08:28] VITALS: BP 114/75
[2021-10-05] MEDS: OLANZapine 10 MG TABLET PO SCH ×2 (08:43→16:36)
[2021-10-06] MEDS: OLANZapine 10 MG TABLET PO SCH ×2 (08:53→16:57)
[2021-10-06] MEDS: LORazepam 2 MG TABLET PO PRN ×2 (16:58→21:25)
[2021-10-06 20:22] VITALS: BP 103/64
[2021-10-07 05:34] VITALS: BP 106/72
[2021-10-07] MEDS: OLANZapine 10 MG TABLET PO SCH ×2 (09:29→16:35)
[2021-10-07] MEDS: LORazepam 2 MG TABLET PO PRN ×2 (09:39→17:23)
[2021-10-07 09:55] VITALS: BP 102/76
[2021-10-07 16:12] VITALS: BP 119/66
[2021-10-07] MEDS: MAG HYDROX/AL HYDROX/SIMETH ES 30 ML SUSPENSION UDCUP PO PRN (18:09)
[2021-10-07] MEDS: HALOPERIDOL 5 MG TABLET PO PRN (19:10)
[2021-10-08 01:12] VITALS: BP 109/76
[2021-10-08 07:22] LABS: BASOPHILS % (AUTO) 0.3 % (0.0-2.0); EOSINOPHILS % (AUTO) 13.3 % (1.0-6.0); HEMATOCRIT 35.5 % (41-53); HEMOGLOBIN 12.2 g/dL (13.5-17.5); LYMPHOCYTES # (AUTO) 0.6 K/uL (1.0-4.8); LYMPHOCYTES % (AUTO) 11.7 % (22.0-44.0); MEAN CORPUSCULAR HEMOGLOBIN 27.2 pg (26.0-34.0); MEAN CORPUSCULAR HGB CONC 34.2 G/dL (31.0-37.0); MEAN CORPUSCULAR VOLUME 80 fL (80-100); MONOCYTES % (AUTO) 19.3 % (2.0-9.0); NEUTROPHILS # (AUTO) 2.9 K/uL (1.8-7.7); NEUTROPHILS % (AUTO) 55.4 % (40.0-70.0); PLATELET COUNT (AUTO) 220 K/uL (150-450); RED BLOOD CELL COUNT(AUTO) 4.47 MIL/uL (4.50-5.90); RED CELL DISTRIBUTION WIDTH 13.8 % (11.5-14.5)
[2021-10-08 07:34] LABS: HEMOGLOBIN A1C 5.7 % (3.8-5.6)
[2021-10-08 07:36] LABS: ALANINE AMINOTRANSFERASE 23 U/L (12-78); ALBUMIN 2.6 g/dL (3.4-5.0); ALKALINE PHOSPHATASE 60 U/L (46-116); ANION GAP 3 mmol/L (8-16); ASPARTATE AMINOTRANSFERASE 22 U/L (15-37); BILIRUBIN,TOTAL 0.1 mg/dL (0.1-1.0); CALCIUM, TOTAL 8.6 mg/dL (8.8-10.5); CARBON DIOXIDE 33 mmol/L (22-29); CHLORIDE 101 mmol/L (98-107); CREATININE 0.77 mg/dL (0.60-1.30); GLOMERULAR FILTR. RATE CALC > 60 mL/min (>60); GLUCOSE,RANDOM 81 mg/dL (70-110); POTASSIUM 4.1 mmol/L (3.5-5.1); SODIUM SERUM 137 mmol/L (136-145); TOTAL PROTEIN, SERUM 8.8 g/dL (6.4-8.2); UREA NITROGEN, BLOOD 21 mg/dL (7-18)
[2021-10-08 07:45] LABS: CHOL/HDL RATIO 3.1 (4.2-7.3); THYROID STIMULATING HORMONE 2.33 uIU/mL (0.36-3.74)
[2021-10-08] MEDS: OLANZapine 10 MG TABLET PO SCH ×2 (07:59→17:47)
[2021-10-08 08:16] VITALS: BP 112/72
[2021-10-08] MEDS: FLUoxetine HCL 20 MG CAPSULE PO SCH (11:18)
[2021-10-08] MEDS: LORazepam 2 MG TABLET PO PRN (12:45)
[2021-10-08] MEDS: HALOPERIDOL 5 MG TABLET PO PRN (12:45)
[2021-10-08] MEDS: ZOLPIDEM TARTRATE 10 MG TABLET PO PRN (23:37)
[2021-10-09 02:04] VITALS: BP 107/75
[2021-10-09] MEDS: OLANZapine 10 MG TABLET PO SCH ×2 (07:59→16:01)
[2021-10-09] MEDS: FLUoxetine HCL 20 MG CAPSULE PO SCH (07:59)
[2021-10-09 08:23] VITALS: BP 147/78
[2021-10-09] MEDS: LORazepam 2 MG TABLET PO PRN ×2 (09:55→16:01)
[2021-10-09] MEDS: HALOPERIDOL 5 MG TABLET PO PRN ×2 (09:55→19:53)
[2021-10-09 16:10] VITALS: BP 108/73
[2021-10-10 01:00] VITALS: BP 110/80
[2021-10-10] MEDS: MULTIVITAMINS WITH MINERALS, THERAPEUTIC TABLET PO SCH (08:48)
[2021-10-10] MEDS: OLANZapine 10 MG TABLET PO SCH ×2 (08:48→16:25)
[2021-10-10] MEDS: FLUoxetine HCL 20 MG CAPSULE PO SCH (08:49)
[2021-10-10 08:53] VITALS: BP 120/70
[2021-10-10 16:20] VITALS: BP 110/61
[2021-10-10] MEDS: LORazepam 2 MG TABLET PO PRN (16:25)
[2021-10-10] MEDS: MAG HYDROX/AL HYDROX/SIMETH ES 30 ML SUSPENSION UDCUP PO PRN (16:29)
[2021-10-10] MEDS: ZOLPIDEM TARTRATE 10 MG TABLET PO PRN (20:20)
[2021-10-11 01:43] VITALS: BP 128/86
[2021-10-11] MEDS: FLUoxetine HCL 20 MG CAPSULE PO SCH (08:21)
[2021-10-11] MEDS: OLANZapine 10 MG TABLET PO SCH ×2 (08:21→16:22)
[2021-10-11] MEDS: MULTIVITAMINS WITH MINERALS, THERAPEUTIC TABLET PO SCH (08:21)
[2021-10-11] MEDS: LORazepam 2 MG TABLET PO PRN ×2 (08:23→14:56)
[2021-10-11 08:31] VITALS: BP 125/76
[2021-10-11 14:54] VITALS: BP 111/62
[2021-10-11 17:18] VITALS: BP 100/77
[2021-10-12 06:49] VITALS: BP 109/77
[2021-10-12] MEDS: OLANZapine 10 MG TABLET PO SCH ×2 (08:17→16:50)
[2021-10-12] MEDS: MULTIVITAMINS WITH MINERALS, THERAPEUTIC TABLET PO SCH (08:17)
[2021-10-12] MEDS: FLUoxetine HCL 20 MG CAPSULE PO SCH (08:17)
[2021-10-12 08:27] VITALS: BP 106/69
[2021-10-12 16:21] VITALS: BP 128/75
[2021-10-12] MEDS: IBUPROFEN 400 MG TABLET PO PRN (16:51)
[2021-10-12] MEDS: LORazepam 1 MG TABLET PO PRN (18:56)
[2021-10-12] MEDS: HALOPERIDOL 5 MG TABLET PO PRN (19:39)
[2021-10-12] MEDS: ZOLPIDEM TARTRATE 10 MG TABLET PO PRN (20:37)
[2021-10-13 05:35] VITALS: BP 129/66
[2021-10-13] MEDS: FLUoxetine HCL 20 MG CAPSULE PO SCH (07:39)
[2021-10-13] MEDS: OLANZapine 10 MG TABLET PO SCH ×2 (07:39→16:09)
[2021-10-13] MEDS: MULTIVITAMINS WITH MINERALS, THERAPEUTIC TABLET PO SCH (07:39)
[2021-10-13 10:55] VITALS: BP 111/86
[2021-10-13] MEDS: HALOPERIDOL 5 MG TABLET PO PRN ×2 (11:09→16:09)
[2021-10-13] MEDS: IBUPROFEN 400 MG TABLET PO PRN (11:09)
[2021-10-13] MEDS: LORazepam 1 MG TABLET PO PRN (11:09)
[2021-10-13 16:16] VITALS: BP 104/63
[2021-10-14] MEDS: LORazepam 1 MG TABLET PO PRN ×2 (03:38→15:44)
[2021-10-14] MEDS: HALOPERIDOL 5 MG TABLET PO PRN (03:38)
[2021-10-14] MEDS: MULTIVITAMINS WITH MINERALS, THERAPEUTIC TABLET PO SCH (07:48)
[2021-10-14] MEDS: FLUoxetine HCL 20 MG CAPSULE PO SCH (07:48)
[2021-10-14] MEDS: OLANZapine 10 MG TABLET PO SCH ×2 (07:48→16:34)
[2021-10-14 12:58] VITALS: BP 119/83
[2021-10-14 15:53] VITALS: BP 103/66
[2021-10-14 17:01] VITALS: BP 103/66
[2021-10-14] MEDS: ZOLPIDEM TARTRATE 10 MG TABLET PO PRN (20:30)
[2021-10-15 06:13] VITALS: BP 123/67
[2021-10-15] MEDS: LORazepam 1 MG TABLET PO PRN ×2 (06:20→16:06)
[2021-10-15] MEDS: FLUoxetine HCL 20 MG CAPSULE PO SCH (08:27)
[2021-10-15] MEDS: MULTIVITAMINS WITH MINERALS, THERAPEUTIC TABLET PO SCH (08:27)
[2021-10-15] MEDS: OLANZapine 10 MG TABLET PO SCH ×2 (08:28→16:06)
[2021-10-15 08:32] VITALS: BP 116/73
[2021-10-15] MEDS: HALOPERIDOL 5 MG TABLET PO PRN (14:30)
[2021-10-15 16:10] VITALS: BP 129/83
[2021-10-15] MEDS: ZOLPIDEM TARTRATE 10 MG TABLET PO PRN (20:47)
[2021-10-16 00:13] VITALS: BP 144/75
[2021-10-16] MEDS: LORazepam 1 MG TABLET PO PRN ×2 (00:14→14:13)
[2021-10-16 00:15] VITALS: BP 105/65
[2021-10-16] MEDS: HALOPERIDOL 5 MG TABLET PO PRN (00:15)
[2021-10-16 08:18] VITALS: BP 112/67
[2021-10-16] MEDS: OLANZapine 10 MG TABLET PO SCH ×2 (10:00→16:53)
[2021-10-16] MEDS: MULTIVITAMINS WITH MINERALS, THERAPEUTIC TABLET PO SCH (10:00)
[2021-10-16] MEDS: FLUoxetine HCL 20 MG CAPSULE PO SCH (10:00)
[2021-10-16 16:12] VITALS: BP 132/86
[2021-10-16] MEDS: ZOLPIDEM TARTRATE 10 MG TABLET PO PRN (19:49)
[2021-10-16 22:16] LABS: GLUCOMETER DEV NAME(LOC) POC.BV
[2021-10-17 02:55] VITALS: BP 128/75
[2021-10-17] MEDS: OLANZapine 10 MG TABLET PO SCH (08:12)
[2021-10-17] MEDS: MULTIVITAMINS WITH MINERALS, THERAPEUTIC TABLET PO SCH (08:12)
[2021-10-17] MEDS: LORazepam 1 MG TABLET PO PRN (08:12)
[2021-10-17] MEDS: HALOPERIDOL 5 MG TABLET PO PRN (08:12)
[2021-10-17] MEDS: FLUoxetine HCL 20 MG CAPSULE PO SCH (08:12)
[2021-10-17 08:49] VITALS: BP 116/80
[2021-10-17] MEDS: MAG HYDROX/AL HYDROX/SIMETH ES 30 ML SUSPENSION UDCUP PO PRN (09:06)
[2021-10-17] MEDS ORDERED: FLUO20CA36 PO ×2 (10:51→11:01)
[2021-10-17] MEDS ORDERED: OLAN10TA74 PO (11:01)
== END 2021-10-17 14:40 | disposition home or self-care (01) | DRG 750 ==
LOC: EMS 11:20 → B2X 10-04 01:36
PROVIDERS: ADMIT Psychiatry & Neurology Child & Adolescent Psychiatry; ATTEND Psychiatry & Neurology Child & Adolescent Psychiatry
DX: F25.1 Schizoaffective disorder, depressive type (principal); R45.851 Suicidal ideations; R45.850 Homicidal ideations; F10.10 Alcohol abuse, uncomplicated; J45.909 Unspecified asthma, uncomplicated; K59.00 Constipation, unspecified; D64.9 Anemia, unspecified; F19.10 Other psychoactive substance abuse, uncomplicated; Z20.822 Contact with and (suspected) exposure to COVID-19; G89.29 Other chronic pain; Z59.00 Homelessness unspecified
CPT/HCPCS: 80053; 80061; 83036; 84443; 85025; 99285; G0480; Q0162

== ENCOUNTER 2023-12-28 23:30 | Emergency (ER) | payer MEDICAID, OTHER ==
[~2023-12-28] VITALS: Ht 172.7 cm; Wt 70.0 kg
[~2023-12-28 23:30] MED LIST changes: +FLUO20CA36 PO
[2023-12-28 23:32] VITALS: BP 110/76; PULSE 99; RESP 17; TEMP 97.8
[2023-12-29 01:26] LABS: BASOPHILS % (AUTO) 0.4 % (0.0-2.0); EOSINOPHILS % (AUTO) 4.3 % (1.0-6.0); HEMATOCRIT 37.3 % (41-53); HEMOGLOBIN 12.3 g/dL (13.5-17.5); LYMPHOCYTES # (AUTO) 0.9 K/uL (1.0-4.8); LYMPHOCYTES % (AUTO) 8.6 % (22.0-44.0); MEAN CORPUSCULAR HEMOGLOBIN 28.3 pg (26.0-34.0); MEAN CORPUSCULAR HGB CONC 32.9 G/dL (31.0-37.0); MEAN CORPUSCULAR VOLUME 86 fL (80-100); MONOCYTES # (AUTO) 1.1 K/uL (0.1-1.0); NEUTROPHILS # (AUTO) 7.6 K/uL (1.8-7.7); NEUTROPHILS % (AUTO) 75.7 % (40.0-70.0); PLATELET COUNT (AUTO) 253 K/uL (150-450); RED BLOOD CELL COUNT(AUTO) 4.33 MIL/uL (4.50-5.90); RED CELL DISTRIBUTION WIDTH 15.9 % (11.5-14.5); WHITE BLOOD COUNT (AUTO) 10.1 K/uL (4.5-11.0)
== END 2023-12-29 02:00 | disposition home or self-care (01) ==
LOC: EMS 23:30
DX: R53.1 Weakness (principal); F20.9 Schizophrenia, unspecified; G89.29 Other chronic pain
CPT/HCPCS: 85025; 99283